=== PATIENT | female | born 1990 | race Caucasian/White ===

== ENCOUNTER 2020-06-11 11:53 | Emergency (ER) | payer MEDICAID ==
[~2020-06-11] VITALS: Ht 157.5 cm; Wt 88.5 kg
[2020-06-11 11:56] VITALS: Ht 157.5 cm; Wt 88.5 kg
[2020-06-11 13:09] LABS: CARBON DIOXIDE 29.6 mmol/L (21-32); CHLORIDE SERUM 104 mmol/L (98-107); GFR1 > 60 mL/min; GLUCOSE SERUM 122 mg/dL (74-106); POTASSIUM SERUM 3.3 mmol/L (3.5-5.1); SODIUM SERUM 140 mmol/L (136-145)
[2020-06-11 13:13] LABS: ALKALINE PHOSPHATASE 82 U/L (46-116); ALT/SGPT 19 U/L (14-59); AST/SGOT 15 U/L (15-37); BILIRUBIN TOTAL 0.48 mg/dL (0.20-1.00); LIPASE 70 IU/L (73-393); TOTAL PROTEIN, SERUM 7.9 g/dL (6.4-8.2)
[2020-06-11 13:32] LABS: BASOPHIL % 0.3 % (0-2); PLATELET COUNT 358 x10^3mcL (130-400); RED CELL DISTRIBUTION WIDTH 14.5 % (11.5-14.5)
[2020-06-11 14:53] VITALS: BP 130/68
== END 2020-06-11 14:53 | disposition home or self-care (01) ==
LOC: ED 11:53
PROVIDERS: Emergency Medicine
DX: K29.70 Gastritis, unspecified, without bleeding (principal)
CPT/HCPCS: J2405; J3010; J7030

== ENCOUNTER 2020-08-18 10:30 | Emergency (ER) | payer MEDICAID, SELFPAY ==
[~2020-08-18] VITALS: Ht 157.5 cm; Wt 88.5 kg
[2020-08-18 10:31] VITALS: Ht 157.5 cm; Wt 88.5 kg
[2020-08-18 11:46] LABS: microscopic required? YES; urine erythrocyte TRACE (NEGATIVE)
[2020-08-18 12:18] LABS: BASOPHIL % 0.2 % (0-2); PLATELET COUNT 286 x10^3mcL (130-400); RED CELL DISTRIBUTION WIDTH 14.3 % (11.5-14.5)
[2020-08-18 12:20] LABS: CALCIUM 8.9 mg/dL (8.5-10.1); CARBON DIOXIDE 26.1 mmol/L (21-32); CHLORIDE SERUM 106 mmol/L (98-107); CREATININE SERUM 0.7 mg/dL (0.6-1.0); GFR1 > 60 mL/min; GLUCOSE SERUM 104 mg/dL (74-106); POTASSIUM SERUM 3.7 mmol/L (3.5-5.1); SODIUM SERUM 142 mmol/L (136-145)
[2020-08-18 12:24] LABS: ALBUMIN 3.7 g/dL (3.4-5.0); ALKALINE PHOSPHATASE 74 U/L (46-116); AST/SGOT 12 U/L (15-37); BILIRUBIN TOTAL 0.62 mg/dL (0.20-1.00); LIPASE 87 IU/L (73-393); TOTAL PROTEIN, SERUM 7.4 g/dL (6.4-8.2)
[2020-08-18 12:34] LABS: ALT/SGPT 19 U/L (14-59)
[2020-08-18 13:48] VITALS: BP 93/55
== END 2020-08-18 13:48 | disposition home or self-care (01) ==
LOC: ED 10:30
PROVIDERS: Emergency Medicine
DX: N76.0 Acute vaginitis (principal); R10.13 Epigastric pain
CPT/HCPCS: J1885; J2405; J7030; Q0092

== ENCOUNTER 2020-08-24 08:37 | Emergency (ER) | payer MEDICAID ==
[~2020-08-24] VITALS: Ht 157.5 cm; Wt 86.2 kg
[2020-08-24 08:39] VITALS: Ht 157.5 cm; Wt 86.2 kg
[2020-08-24 10:21] VITALS: BP 94/58
== END 2020-08-24 10:21 | disposition home or self-care (01) ==
LOC: ED 08:37
DX: F12.99 Cannabis use, unspecified with unspecified cannabis-induced disorder (principal); R11.10 Vomiting, unspecified
CPT/HCPCS: J1200; J1885; J2765

== ENCOUNTER 2020-12-18 10:26 | Emergency (ER) | payer MEDICAID, SELFPAY ==
[~2020-12-18] VITALS: Ht 157.5 cm; Wt 85.7 kg
[2020-12-18 10:29] VITALS: Ht 157.5 cm; Wt 85.7 kg
[2020-12-18] MEDS ORDERED: MP PO (12:12)
[2020-12-18] MEDS ORDERED: ZOF4 PO (12:12)
[2020-12-18 12:29] VITALS: BP 119/74
== END 2020-12-18 12:29 | disposition home or self-care (01) ==
LOC: ED 10:26
DX: R10.13 Epigastric pain (principal); G89.29 Other chronic pain; F12.20 Cannabis dependence, uncomplicated; M54.9 Dorsalgia, unspecified; R11.10 Vomiting, unspecified
CPT/HCPCS: Q0162